=== PATIENT | male | born 1960 | race Caucasian/White ===

== ENCOUNTER 2017-05-03 14:11 | Inpatient (IN) | payer OTHER ==
[~2017-05-03] VITALS: Ht 170.2 cm; Wt 75.0 kg
[2017-05-03] MEDS ORDERED: ASPIRIN 81 MG TABLET CHEW ONE (15:25)
[2017-05-03] MEDS ORDERED: hydrALAzine 20 MG/ML, 1ML ONE (15:25)
[2017-05-03] MEDS ORDERED: ASPIRIN 81 MG TABLET CHEW PO ONE (15:30)
[2017-05-03] MEDS ORDERED: hydrALAzine 20 MG/ML, 1ML IV ONE (15:30)
[2017-05-03] MEDS ORDERED: SODIUM CHLORIDE FLUSH 10ML SYR IVF ONE (15:30)
[2017-05-03 15:56] LABS: HEMATOCRIT 43.5 % (39.2-51.8); HEMOGLOBIN 15.1 g/dL (13.7-18.0); WHITE BLOOD COUNT 9.3 x10^3/uL (3.4-10)
[2017-05-03 16:03] LABS: BLOOD UREA NITROGEN 19 mg/dL (7-18)
[2017-05-03 16:09] LABS: ASPARTATE AMINO TRANSFERASE 18 U/L (15-37)
[2017-05-03 16:10] LABS: IS PT STATUS REG ER OR PRE ER? YES
[2017-05-03] MEDS ORDERED: HEPARIN 5,000 UNITS/ML, 1ML ONE (16:56)
[2017-05-03] MEDS ORDERED: HEPARIN 25,000 UNITS/500ML PMX 500 ML ONE (16:56)
[2017-05-03] MEDS ORDERED: HEPARIN 5,000 UNITS/ML, 1ML IV ONE (17:00)
[2017-05-03] MEDS ORDERED: HEPARIN 25,000 UNITS/500ML PMX 500 ML IV PRN (17:00)
[2017-05-03] MEDS ORDERED: ONDANSETRON 2MG/ML, 2ML IVPush PRN (17:30)
[2017-05-03] MEDS ORDERED: morphine SULFATE 10 MG/ML, 1ML IVPush PRN (17:30)
[2017-05-03] MEDS ORDERED: ONDANSETRON ODT 4 MG PO PRN (17:30)
[2017-05-03] MEDS ORDERED: DOCUSATE 100 MG CAPSULE PO PRN (17:30)
[2017-05-03] MEDS ORDERED: NITROGLYCERIN 0.4 MG BOTTLE (25 TABS) SL PRN (17:30)
[2017-05-03] MEDS ORDERED: ENALAPRILAT 1.25 MG/ML, 2ML IVPush PRN (17:30)
[2017-05-03 18:08] VITALS: BP 213/128
[2017-05-03 18:10] VITALS: BP 187/116
[2017-05-03] MEDS: SODIUM CHLORIDE 0.9% 1,000 ML IV SCH (18:36)
[2017-05-03 19:19] VITALS: BP 197/107
[2017-05-03 20:58] VITALS: BP 187/109
[2017-05-03] MEDS: hydrALAzine 20 MG/ML, 1ML IVPush PRN (21:03)
[2017-05-03 21:26] LABS: IS PT STATUS REG ER OR PRE ER? NO
[2017-05-03] MEDS: ACETAMINOPHEN 325 MG TABLET PO PRN (22:12)
[2017-05-03] MEDS: HEPARIN 5,000 UNITS/ML, 1ML IV PRN (23:45)
[2017-05-03 23:47] VITALS: BP 114/70
[2017-05-04 01:14] VITALS: BP 119/72
[2017-05-04] MEDS ORDERED: NITROGLYCERIN 0.4 MG/SPRAY SL PRN (01:30)
[2017-05-04 03:21] LABS: HEMATOCRIT 40.4 % (39.2-51.8); WHITE BLOOD COUNT 8.7 x10^3/uL (3.4-10)
[2017-05-04 03:33] LABS: ASPARTATE AMINO TRANSFERASE 15 U/L (15-37); BLOOD UREA NITROGEN 22 mg/dL (7-18)
[2017-05-04] MEDS: SODIUM CHLORIDE 0.9% 1,000 ML IV SCH ×2 (04:42→14:36)
[2017-05-04 05:13] LABS: IS PT STATUS REG ER OR PRE ER? NO
[2017-05-04] MEDS: HEPARIN 5,000 UNITS/ML, 1ML IV PRN (06:23)
[2017-05-04] MEDS: ASPIRIN 325 MG TABLET EC PO SCH (06:23)
[2017-05-04 09:00] VITALS: BP 157/91
[2017-05-04] MEDS ORDERED: REGADENOSON 0.4 MG/5 ML SYRINGE ONE (11:08)
[2017-05-04] MEDS ORDERED: AMINOPHYLLINE 25 MG/ML, 10ML ONE (11:18)
[2017-05-04] MEDS: SENNA/DOCUSATE TABLET PO SCH (12:00)
[2017-05-04 15:03] VITALS: BP 155/87
[2017-05-04 19:27] VITALS: BP 174/94
[2017-05-04] MEDS: hydrALAzine 20 MG/ML, 1ML IVPush PRN (20:01)
[2017-05-05 00:48] VITALS: BP 160/86
[2017-05-05 06:43] VITALS: BP 165/90
[2017-05-05] MEDS: ASPIRIN 325 MG TABLET EC PO SCH (07:20)
[2017-05-05] MEDS: SENNA/DOCUSATE TABLET PO SCH (08:01)
[2017-05-05] MEDS: LISINOPRIL 10 MG TABLET PO SCH (11:05)
[2017-05-05] MEDS: ACETAMINOPHEN 325 MG TABLET PO PRN (11:15)
[2017-05-05 13:53] VITALS: BP 200/99
[2017-05-05] MEDS ORDERED: ATOR10TA9 PO (14:10)
[2017-05-05] MEDS ORDERED: ASPI-650 PO (14:10)
[2017-05-05] MEDS ORDERED: LISI-167 PO (14:10)
[2017-05-05] MEDS: hydrALAzine 20 MG/ML, 1ML IVPush PRN (14:13)
[2017-05-05 14:31] VITALS: BP 153/86
[2017-05-05 17:51] VITALS: BP 184/113
[2017-05-05] MEDS: AMLODIPINE 5 MG TABLET PO SCH (17:52)
[2017-05-05 20:27] VITALS: BP 165/97
[2017-05-05] MEDS ORDERED: ATORVASTATIN 10 MG TABLET PO SCH ×2 (21:00)
[2017-05-06 04:59] VITALS: BP 171/99
[2017-05-06] MEDS: ASPIRIN 325 MG TABLET EC PO SCH (05:02)
[2017-05-06 07:10] VITALS: BP 163/98
[2017-05-06] MEDS: AMLODIPINE 5 MG TABLET PO SCH (08:44)
[2017-05-06] MEDS: LISINOPRIL 10 MG TABLET PO SCH (08:45)
[2017-05-06] MEDS: SENNA/DOCUSATE TABLET PO SCH (08:47)
[2017-05-06 10:20] VITALS: BP 152/88
[2017-05-06] MEDS ORDERED: AMLO5TAB2 PO (11:14)
[2017-05-06 13:30] VITALS: BP 151/89
[2017-05-06] MEDS ORDERED: ATORVASTATIN 40 MG TABLET PO SCH (21:00)
[2017-05-07] MEDS ORDERED: ASPIRIN 81 MG TABLET EC PO SCH (06:00)
== END 2017-05-06 14:42 | disposition home or self-care (01) | DRG 281 ==
LOC: ED 16:41 → EDIP 16:42 → ED 16:42 → 5SO 17:38 → DCLOUNGE 05-06 14:26
PROVIDERS: ADMIT Hospitalist; ATTEND Hospitalist
DX: I21.4 Non-ST elevation (NSTEMI) myocardial infarction (principal); N17.9 Acute kidney failure, unspecified; I27.20 Pulmonary hypertension, unspecified; I42.9 Cardiomyopathy, unspecified; I11.9 Hypertensive heart disease without heart failure; I45.10 Unspecified right bundle-branch block; E78.5 Hyperlipidemia, unspecified; Z83.3 Family history of diabetes mellitus; Z91.14 Patient's other noncompliance with medication regimen; Z87.891 Personal history of nicotine dependence; Z79.899 Other long term (current) drug therapy
CPT/HCPCS: 36415; 71010; 78452; 80053; 80061; 83735; 84100; 84439; 84443; 84484; 85025; 85520; 93005; 93017; 93306; 96361; 96365; 96375; 96376; J1644; J2785; A9502; C9898; J0280; J0360; J7030

== ENCOUNTER → 2020-01-18 | Outpatient (CLI) | payer OTHER ==
[~2020-01-18] MED LIST: AMLO-150 PO; ASPI-650 PO; ATOR10TA9 PO; LISI-167 PO
== END | disposition home or self-care (01) ==
LOC: CARD 09:00
PROVIDERS: ATTEND Internal Medicine Cardiovascular Disease
DX: I25.10 Atherosclerotic heart disease of native coronary artery without angina pectoris (principal); R06.89 Other abnormalities of breathing; R53.83 Other fatigue
CPT/HCPCS: 93017; 93350